=== PATIENT | female | born 1945 | race Caucasian/White ===

== ENCOUNTER 2018-06-07 18:27 | Emergency (ER) | payer BC ==
[~2018-06-07] VITALS: Ht 157.5 cm; Wt 54.4 kg
[~2018-06-07 18:27] MED LIST: GLIP10TA3 PO; HYDR25TA4 PO; LISI-600 PO; METF1000 PO; SIMV20TA2 PO
[2018-06-07 18:30] VITALS: BP_SYST 179
[2018-06-07 20:20] LABS: HEMATOCRIT 31.8 % (36-48); HEMOGLOBIN 10.7 g/dL (12.0-16.0); MEAN CORPUSCULAR HEMOGLOBIN 29 pg (27-31); MEAN CORPUSCULAR HGB CONC 34 % (32-36); MEAN CORPUSCULAR VOLUME 85 fL (79.0-98.0); RED BLOOD CELL COUNT(AUTO) 3.74 MIL/uL (4.2-6.2); RED CELL DISTRIBUTION WIDTH 15.3 % (9.0-15.0); WHITE BLOOD COUNT (AUTO) 7.5 K/uL (4.8-10.8)
[2018-06-07 20:21] LABS: BASOPHILS % (AUTO) 0.2 % (0.0-2.0); EOSINOPHILS # (AUTO) 0.3 K/uL (0.0-0.4); EOSINOPHILS % (AUTO) 3.5 % (0.0-4.0); LYMPHOCYTES # (AUTO) 2.2 K/uL (1.0-5.5); LYMPHOCYTES % (AUTO) 29.6 % (20.5-51.5); MONOCYTES # (AUTO) 0.5 K/uL (0.0-1.0); MONOCYTES % (AUTO) 7.3 % (1.7-9.3); NEUTROPHILS # (AUTO) 4.5 K/uL (1.8-7.7); NEUTROPHILS % (AUTO) 59.4 % (40.0-70.0); PLATELET COUNT (AUTO) 281 K/uL (130-430)
[2018-06-07 20:25] LABS: ANION GAP 11 (5-15); CALCIUM 9.3 mg/dL (8.4-11.0); CHLORIDE 99 mmol/L (98-107); CREATININE 0.76 mg/dL (0.55-1.30); GLUCOSE 129 mg/dL (70-99); POTASSIUM 4.3 mmol/L (3.5-5.1); SODIUM SERUM 136 mmol/L (136-145); UREA NITROGEN, BLOOD 19 mg/dL (8-21)
[2018-06-07 20:34] LABS: ALANINE AMINOTRANSFERASE 21 U/L (12-78); ALBUMIN 3.4 g/dL (3.4-4.8); ASPARTATE AMINOTRANSFERASE 16 U/L (10-37); TOTAL BILIRUBIN 0.2 mg/dL (0.0-1.0)
[2018-06-07 21:11] VITALS: BP_SYST 153
== END 2018-06-07 21:11 | disposition home or self-care (01) ==
LOC: SED 18:27
DX: R11.0 Nausea (principal); I10 Essential (primary) hypertension; E11.9 Type 2 diabetes mellitus without complications; Z88.1 Allergy status to other antibiotic agents; Z79.899 Other long term (current) drug therapy
CPT/HCPCS: 36415; 80053; 84484; 85025; 93005; 99284

== ENCOUNTER 2020-03-09 08:50 | Day surgery (SDC) | payer BC, SELFPAY ==
[~2020-03-09] VITALS: Ht 154.9 cm; Wt 54.4 kg
[2020-03-09] MEDS ORDERED: ONDANSETRON HCL 4 MG/2 ML VIAL IVP PRN ×2 (13:00→13:30)
[2020-03-09] MEDS ORDERED: SEVOFLURANE 15 MIN GAS INH ONE (13:25)
[2020-03-09] MEDS ORDERED: BACITRACIN 1 GM OINT TP ONE (13:25)
[2020-03-09] MEDS ORDERED: PROPOFOL 200MG/ 20ML VIAL (DIPRIVAN) IV ONE (13:25)
[2020-03-09] MEDS ORDERED: NS IRRIG SOLN 1000 ML IR ONE (13:25)
[2020-03-09] MEDS ORDERED: fentaNYL CITRATE/PF 100 MCG/2 ML AMP ONE (13:25)
[2020-03-09] MEDS ORDERED: LIDOCAINE/EPI 1% 1:100000 20 ML VIAL INJ ONE (13:25)
[2020-03-09] MEDS ORDERED: LABETALOL 100 MG/ 20ML VIAL ONE (13:25)
[2020-03-09] MEDS ORDERED: SUCCINYLCHOLINE CHLORIDE 20 MG/ML(QUELICIN) ONE (13:25)
[2020-03-09] MEDS ORDERED: LR 1,000 ML IV.SOLN IV ONE (13:25)
[2020-03-09] MEDS ORDERED: MEPERIDINE HCL/PF 50 MG/ML AMP ONE (13:25)
[2020-03-09] MEDS ORDERED: THROMBIN (BOVINE) 5000 UNITS/ VIAL TP ONE (13:25)
[2020-03-09] MEDS ORDERED: KETOROLAC TROMETHAMINE 30 MG VIAL IVP PRN (13:30)
[2020-03-09] MEDS ORDERED: LR 1,000 ML IV SCH (13:30)
[2020-03-09] MEDS ORDERED: HYDROmorphone 1 MG INJ. 1 MG/ML AMPUL ONE (13:32)
[2020-03-09] MEDS: HYDROmorphone 1 MG INJ. 1 MG/ML AMPUL IVP PRN ×2 (13:37→13:47)
[2020-03-09] MEDS ORDERED: ONDANSETRON HCL 4 MG/2 ML VIAL ONE (13:56)
[2020-03-09 14:50] VITALS: BP_SYST 182
--- NOTE | 2020-03-09 14:50 | NUR ---
Patient received from PACU via bed, received report from Elida MINAYA. Patient is a/ox4, denies pain, dressing neck circumference is clean, dry and intact, IV line is patent and infusing well, educated patient occupational therapy aides teacher light system and plan of care, she verbalized understanding, bed in lowest position, three side rails up, bed alarm on, fall and aspiration precautions in place, HOB at 40 degrees.
[2020-03-09 15:05] VITALS: BP_SYST 182
[2020-03-09] MEDS ORDERED: ASPI-1155 PO (15:23)
[2020-03-09] MEDS ORDERED: FLU VACC QS2020-21(65UP)/PF 0.7 ML/SYRINGE I.M. PRN (15:30)
[2020-03-09] MEDS: NORMAL SALINE 5 ML DISP.SYRIN IVF SCH ×4 (16:08→21:31)
--- NOTE | 2020-03-09 16:10 | NUR ---
RN rounds patient resting in bed, asking to go pee, inquired of patient if she can walk/if she feels comfortable walking but said no at this time, provided with bedpan, patient was able to void in bedpan, she tolerated well, saline locked IV, IV is patent and infusing well, patient denies pain, provided patient with ice water and juice, aspiration precautions in place, continuing to monitor, bed in lowest position, three side rails up, bed alarm on, call light within reach, SCD's in place.
--- NOTE | 2020-03-09 16:38 | NUR ---
Paged Helen Shay for medication reconciliation and to inform that patient is in Afib, controlled at a rate of 75.
--- NOTE | 2020-03-09 17:36 | NUR ---
RN rounds patient resting in bed, asking to go pee, inquired of patient if she can walk/if she feels comfortable walking but said no at this time, provided with bedpan, patient was able to void in bedpan, she tolerated well, patient denies pain, patient was able to drink some juice, awaiting MD call back at this time, continuing to monitor, bed in lowest position, three side rails up, bed alarm on, call light within reach, SCD's in place.
--- NOTE | 2020-03-09 18:29 | NUR ---
Closing note patient resting in bed, eyes closed, breathing is even and unlabored, no signs of distress, called dietary 2 times for meal try, all other needs met, will endorse report to NOC shift nurse, bed in lowest position ,three side rails up, bed alarm on, call light is within reach, fall and aspiration precautions in place.
--- NOTE | 2020-03-09 19:25 | NUR ---
Late Entry due to patient care: Report received from day shift nurse. Pt was received lying in bed fully awake, alert and oriented x4. Neck dressing is dry and intact. Skin is warm and dry to touch. No signs or symptoms of hypoglycemia or hyperglycemia noted. No c/o pain or discomfort. Pt was instructed to use IS 10x Q 1hr WA and pt verbalized understanding. Pt's IS usage is up to 1000ml. Saline lock in right hand is without any signs of infiltration. Fall and safety precautions are in place.
[2020-03-09 20:00] VITALS: BP_SYST 130
--- NOTE | 2020-03-09 20:27 | NUR ---
Wilfred in the Lab was notified about scheduled 1999 Serum Calcium. Wilfred stated he will notify a rn lactation as soon as one comes into the lab because all the phlebotomists are in the units.
--- NOTE | 2020-03-09 21:45 | NUR ---
Updates given to pt's daughter Evelina.
--- NOTE | 2020-03-09 21:51 | NUR ---
CHRISTIAN RODRÍGUEZ FOR PATIENT FOR MED ORDERS. I SPOKE WITH MERRITT. Addendum: 03/09/20 at 2158 by Serenity Driscoll SC/ I SPOKE WITH JAYMIE
--- NOTE | 2020-03-09 22:45 | NUR ---
New orders received from Dr. Rust.
[2020-03-09] MEDS ORDERED: CARV6.2554 PO (22:47)
[2020-03-09] MEDS ORDERED: GLUCOSE (DEXTROSE) ORAL GEL -Adults PO PRN (23:00)
[2020-03-09] MEDS ORDERED: DEXTROSE 50% JECT 50 ML DISP.SYRIN IVP PRN (23:00)
[2020-03-09] MEDS: metFORMIN HCL 500 MG TABLET PO SCH (23:23)
[2020-03-09] MEDS: lisinopriL 20 MG TABLET PO SCH (23:24)
[2020-03-09] MEDS: HYDROcodone/ACETAMIN 5-325 MG TAB (NORCO/ VICODIN) PO PRN (23:45)
--- NOTE | 2020-03-09 23:45 | NUR ---
[place] 5/325mg 1 tablet was given po for c/o 6/10 anterior neck incisional pain. Fall and safety precautions are in place. Call light is with pt and bed alarm is on. Pt was instructed not to get out of bed without calling for assistance and pt verbalized understanding.
[2020-03-10] VITALS: BP_SYST 144
--- NOTE | 2020-03-10 02:00 | NUR ---
Pt is sleeping without any distress noted. Neck dressing is dry and intact. Fall and safety precautions are in place.
--- NOTE | 2020-03-10 03:37 | NUR ---
CONSULT REASON FOR CONSULT: MEDICAL FOLLOW UP POST-OP PERSON I SPOKE WITH: MANDI CONSULTING PHYSICIAN: DR. PERRY BANK CONSULTANT PHONE NUMBER: [phone] ORDERING PHYSICIAN: DR. RODRÍGUEZ
--- NOTE | 2020-03-10 04:00 | NUR ---
Pt is sleeping comfortably in bed. Sudhir nd safety precautions are in place.
[2020-03-10] MEDS: NORMAL SALINE 5 ML DISP.SYRIN IVF SCH ×2 (05:17→06:08)
[2020-03-10 08:00] VITALS: BP_SYST 160
[2020-03-10] MEDS ORDERED: CARVEDILOL 6.25 MG TABLET (COREG) PO SCH (09:00)
[2020-03-10] MEDS: metFORMIN HCL 500 MG TABLET PO SCH (09:27)
[2020-03-10] MEDS: lisinopriL 20 MG TABLET PO SCH (09:28)
[2020-03-10] MEDS: HYDROcodone/ACETAMIN 5-325 MG TAB (NORCO/ VICODIN) PO PRN (09:59)
--- NOTE | 2020-03-10 10:08 | NUR ---
alert, oriented, pointing towards her neck, looking at the tray, nodded her head " cant eat that food, which is solid" mechanical soft diet ordered, and gave it to the patient. had some difficulty to swallow the food. complained of pain, one [place] po, 5/325mg given her bp in 160/78, with hr 89, all pills given as ordered. patient is going to discharge to home as soon as everything under control. both patient and daughter Yamile [phone] made aware. will give Yamile a call for roll picker when patient ready to leave
[2020-03-10 11:26] VITALS: BP_SYST 160
[2020-03-10 11:30] VITALS: BP_SYST 169
--- NOTE | 2020-03-10 11:48 | NUR ---
MADE A FOLLOW UP CALL TO DR PERRY, CONSULT FOR [facility]. SPOKE TO RENU.
--- NOTE | 2020-03-10 11:49 | NUR ---
vs taken right now, her bp still in the 160's ( manually taken). attempted to reach the attending, dr Barrera Cervantes to see whether we can discharge her with this BP.
--- NOTE | 2020-03-10 12:02 | NUR ---
PAGED PAGED RODOLFO DANIELS AT [phone] SPOKE WITH FELIZ.
--- NOTE | 2020-03-10 12:21 | NUR ---
nuclear medical tech Joey from dr Barrera Cervantes's office returned the phone call, " Yes it is okayed to discharge the patient to home. HL, monitor out, her daughter Yamile called and made aware so the patient can be picked up bailee [phone]
--- NOTE | 2020-03-10 12:46 | NUR ---
all her home meds given back to her, left the floor right now, at 1255, alert, oriented, and appropriate. Escorted to the lobby, in a wheelchair by our staff.
[2020-03-10 12:48] VITALS: BP_SYST 160
[2020-03-10] MEDS ORDERED: metFORMIN HCL 500 MG TABLET PO SCH (21:00)
== END 2020-03-10 13:00 | disposition home or self-care (01) ==
LOC: SDS 08:50 → SMU 08:50 → STU 15:00 → SDS 03-10 13:00
PROVIDERS: ATTEND Otolaryngology Plastic Surgery within the Head & Neck
DX: C73 Malignant neoplasm of thyroid gland (principal); Z79.01 Long term (current) use of anticoagulants; Z79.899 Other long term (current) drug therapy; Z23 Encounter for immunization; Z20.828 Contact with and (suspected) exposure to other viral communicable diseases
CPT/HCPCS: 36415; 60240; 82310; 82962; 88307; 90662; C1782; J0330; J1170; J2175; J2405; J2704; J3010; J3490; J7120; U0003; 88311; 88341; 88342

== ENCOUNTER 2022-02-02 08:14 | Emergency (ER) | payer BC ==
[~2022-02-02] VITALS: Ht 160 cm; Wt 54.0 kg
[~2022-02-02 08:14] MED LIST changes: +CARV6.2554 PO; -HYDR25TA4 PO; -LISI-600 PO; +LISI20TA30 PO; -SIMV20TA2 PO
[2022-02-02 08:26] VITALS: BP_SYST 169
--- NOTE | 2022-02-02 08:48 | NUR ---
BIB MEDIC S/P MECH FALL. DAUGHTER STATES PT WAS ATTEMPTING TO PLACE HEAVY BOX IN CAR AND LOST FOOTING. DAUGHTER STATES PT FELL BACKWARD ONTO BRICK STEPS AT DOORWAY/ENTRANCE AREA. DAUGHTER STATES PT HAD A 3 SEC PERIOD WHERE SHE DID NOT RESPOND. LAC <3CM NOTED TO POST HEAD. BLEEDING CONTROLLED. ASSESMENT COMPLETE. COMFORT MEASURES AND SUPPORTIVE CARE INITIATED. SEEN BY ESPINOZA.
--- NOTE | 2022-02-02 09:33 | NUR ---
TO CT VIA LINDY. ESPINOZA AT . STATUS UPDATE GIVEN TO FAMILY MEMBER. LAC CLEANSED AND SOAKS W/ NS FLUSH AND GAUZE GENTLY PLACED TO LOOSEN HAIR.
[2022-02-02] MEDS ORDERED: NACL 0.9% 1,000 ML IV ONE ×2 (09:45→11:30)
[2022-02-02] MEDS ORDERED: ONDANSETRON HCL 4 MG/2 ML VIAL IVP ONE ×2 (09:45→11:30)
[2022-02-02] MEDS ORDERED: MORPHINE 4 MG INJ. 4 MG/ML VIAL IVP ONE ×2 (09:45→11:30)
[2022-02-02 09:56] LABS: BASOPHILS # (AUTO) 0.1 K/uL (0.0-0.2); BASOPHILS % (AUTO) 0.7 % (0.0-2.0); EOSINOPHILS # (AUTO) 0.2 K/uL (0.0-0.4); HEMATOCRIT 32.5 % (36-48); HEMOGLOBIN 11.1 g/dL (12.0-16.0); LYMPHOCYTES # (AUTO) 1.3 K/uL (1.0-5.5); LYMPHOCYTES % (AUTO) 12.8 % (20.5-51.5); MEAN CORPUSCULAR HEMOGLOBIN 31 pg (27-31); MEAN CORPUSCULAR HGB CONC 34 % (32-36); MEAN CORPUSCULAR VOLUME 89 fL (79.0-98.0); MONOCYTES # (AUTO) 0.5 K/uL (0.0-1.0); MONOCYTES % (AUTO) 4.6 % (1.7-9.3); NEUTROPHILS # (AUTO) 8.4 K/uL (1.8-7.7); NEUTROPHILS % (AUTO) 79.9 % (40.0-70.0); PLATELET COUNT (AUTO) 243 K/uL (130-430); RED BLOOD CELL COUNT(AUTO) 3.63 MIL/uL (4.2-6.2); RED CELL DISTRIBUTION WIDTH 13.6 % (9.0-15.0); WHITE BLOOD COUNT (AUTO) 10.5 K/uL (4.8-10.8)
[2022-02-02 10:07] LABS: ANION GAP 7 (5-15); CHLORIDE 103 mmol/L (98-107); CREATININE 0.92 mg/dL (0.55-1.30); GLUCOSE 200 mg/dL (70-99); UREA NITROGEN, BLOOD 17 mg/dL (8-21)
[2022-02-02 10:22] LABS: ALANINE AMINOTRANSFERASE 22 U/L (12-78); ALBUMIN 3.7 g/dL (3.4-4.8); ASPARTATE AMINOTRANSFERASE 21 U/L (10-37); FREE T4 (FREE THYROXINE) 1.6 ng/dl (0.8-1.5); THYROID STIMULATING HORMONE 0.07 uIu/mL (0.36-3.74); TOTAL BILIRUBIN 0.3 mg/dL (0.0-1.0)
[2022-02-02] MEDS ORDERED: DIPHTH,PERTUSS(ACELL),TET VAC 0.5 ML VIAL (Tdap) I.M. ONE (11:45)
[2022-02-02] MEDS ORDERED: LIDOCAINE/EPI 2% 1:100000 20 ML VIAL INJ ONE (13:15)
--- NOTE | 2022-02-02 14:15 | NUR ---
Irrigated head wound with coupious amounts of 0.9% N.S.
--- NOTE | 2022-02-02 14:16 | NUR ---
Set up for suture or 1" head laceration.
[2022-02-02] MEDS ORDERED: LIDOINT TP (14:19)
[2022-02-02] MEDS ORDERED: ACET1TAB93 PO (14:19)
[2022-02-02] MEDS ORDERED: IBUP-1969 PO (14:19)
[2022-02-02] MEDS ORDERED: CYCL10TA24 PO (14:19)
[2022-02-02] MEDS ORDERED: BACI15OI13 TP (14:20)
--- NOTE | 2022-02-02 14:34 | NUR ---
WOUND CLOSURE COMPLETE. PENDING D/C. PT JAQUELINE WELL.
[2022-02-02 18:44] VITALS: BP_SYST 160
== END 2022-02-02 18:44 | disposition home or self-care (01) ==
LOC: SED 08:14
DX: S01.01XA Laceration without foreign body of scalp, initial encounter (principal); S13.4XXA Sprain of ligaments of cervical spine, initial encounter; R07.89 Other chest pain; E11.9 Type 2 diabetes mellitus without complications; I10 Essential (primary) hypertension; Z88.1 Allergy status to other antibiotic agents; Z79.899 Other long term (current) drug therapy; W10.8XXA Fall (on) (from) other stairs and steps, initial encounter; Y93.89 Activity, other specified; Y92.89 Other specified places as the place of occurrence of the external cause; Y99.8 Other external cause status
CPT/HCPCS: 99285; 70450; 96374; 71045; 96361; 96375; 80053; 84439; 84443; 85025; 36415; 93005; 72125; 76376; 90715; 90471; J2405; J2270; J7030